=== PATIENT | male | born 1995 | race Caucasian/White ===

== ENCOUNTER 2025-01-02 08:46 | Outpatient (CLI) | payer OTHER | END 2025-01-02 08:47 | disposition home or self-care (01) | LOC: CSHSLEEP 08:46 | PROVIDERS: ATTEND Internal Medicine | DX: G47.33 Obstructive sleep apnea (adult) (pediatric) (principal); R53.83 Other fatigue | CPT/HCPCS: 95800 ==

== ENCOUNTER 2025-02-16 09:20 | Outpatient (CLI) | payer OTHER | END 2025-02-16 09:21 | disposition home or self-care (01) | LOC: CSHSLEEP 09:20 | PROVIDERS: ATTEND Internal Medicine | DX: G47.33 Obstructive sleep apnea (adult) (pediatric) (principal); F41.9 Anxiety disorder, unspecified; F31.9 Bipolar disorder, unspecified | CPT/HCPCS: 95810 ==